=== PATIENT | male | born 1990 | race Caucasian/White ===

== ENCOUNTER 2018-04-19 15:50 | Emergency (ER) ==
--- NOTE | 2018-04-19 16:05 | NUR ---
NOT IN LOBBY
--- NOTE | 2018-04-19 16:14 | NUR ---
NOT IN LOBBY
--- NOTE | 2018-04-19 16:26 | NUR ---
NOT IN LOBBY
== END 2018-04-19 16:33 | disposition left against medical advice (07) ==
LOC: ER 15:51
DX: Z02.89 Encounter for other administrative examinations (principal); Z53.21 Procedure and treatment not carried out due to patient leaving prior to being seen by health care provider

== ENCOUNTER 2018-04-21 14:48 | Emergency (ER) | payer OTHER ==
[~2018-04-21] VITALS: Ht 188 cm; Wt 78.0 kg
[2018-04-21 15:01] VITALS: BP 188/105
[2018-04-21] MEDS ORDERED: HYDR25TA4 PO (15:20)
== END 2018-04-21 15:27 | disposition home or self-care (01) ==
LOC: ER 14:49
DX: I10 Essential (primary) hypertension (principal); R19.7 Diarrhea, unspecified; F17.200 Nicotine dependence, unspecified, uncomplicated; F15.10 Other stimulant abuse, uncomplicated; Z79.899 Other long term (current) drug therapy
CPT/HCPCS: 99283

== ENCOUNTER 2018-06-05 14:37 | Emergency (ER) | payer SELFPAY ==
[~2018-06-05] VITALS: Ht 188 cm; Wt 79.1 kg
[~2018-06-05 14:37] MED LIST: HYDR25TA4 PO
[2018-06-05 14:47] VITALS: BP 151/96
--- NOTE | 2018-06-05 15:02 | NUR ---
PT RESTING QUIETLY ON WHEELCHAIR, WAITING TO BE EVALUATED BY PROVIDER
[2018-06-05] MEDS ORDERED: ketorolac tromethamine 15mg/ml inj. IM ONE (15:15)
[2018-06-05] MEDS ORDERED: IBUP-1984 PO (15:41)
--- NOTE | 2018-06-05 16:08 | NUR ---
KNEE IMMOBILIZER ON UPON DC.
== END 2018-06-05 16:07 | disposition home or self-care (01) ==
LOC: ER 14:38
DX: S83.8X2A Sprain of other specified parts of left knee, initial encounter (principal); I10 Essential (primary) hypertension; F15.90 Other stimulant use, unspecified, uncomplicated; Z79.899 Other long term (current) drug therapy; W16.812A Jumping or diving into other water striking water surface causing other injury, initial encounter; Y93.89 Activity, other specified; Y92.89 Other specified places as the place of occurrence of the external cause; Y99.8 Other external cause status
CPT/HCPCS: 29505; 73560; 96372; 99284; J1885

== ENCOUNTER 2018-08-23 22:52 | Emergency (ER) | payer MEDICAID ==
[~2018-08-23] VITALS: Ht 188 cm; Wt 72.2 kg
[2018-08-23] MEDS ORDERED: ibuprofen 200mg tablet PO ONE (23:20)
[2018-08-23] MEDS ORDERED: PENI500T2 PO (23:22)
[2018-08-23 23:31] VITALS: BP 157/97
== END 2018-08-23 23:34 | disposition home or self-care (01) ==
LOC: ER 22:52
DX: K06.9 Disorder of gingiva and edentulous alveolar ridge, unspecified (principal); F15.90 Other stimulant use, unspecified, uncomplicated
CPT/HCPCS: 99283

== ENCOUNTER 2018-09-09 17:28 | Emergency (ER) | payer MEDICAID ==
[~2018-09-09] VITALS: Ht 188 cm; Wt 85.0 kg
[~2018-09-09 17:28] MED LIST changes: +PENI500T2 PO
[2018-09-09 17:40] VITALS: BP 149/89
[2018-09-09] MEDS ORDERED: IBUP-1986 PO (18:24)
[2018-09-09] MEDS ORDERED: ketorolac trometh inj. 60 MG/2 ML VIAL IM ONE (18:25)
== END 2018-09-09 18:42 | disposition home or self-care (01) ==
LOC: ER 17:29
DX: M54.6 Pain in thoracic spine (principal); I10 Essential (primary) hypertension; F15.90 Other stimulant use, unspecified, uncomplicated; Z88.6 Allergy status to analgesic agent; Z79.2 Long term (current) use of antibiotics; Z79.899 Other long term (current) drug therapy; X50.1XXA Overexertion from prolonged static or awkward postures, initial encounter; Y93.9 Activity, unspecified; Y92.89 Other specified places as the place of occurrence of the external cause; Y99.8 Other external cause status
CPT/HCPCS: 96372; 99283; J1885

== ENCOUNTER 2020-06-19 10:17 | Emergency (ER) | payer MEDICAID ==
[~2020-06-19] VITALS: Ht 188 cm; Wt 74.9 kg
[~2020-06-19 10:17] MED LIST changes: +IBUP-1986 PO; -PENI500T2 PO
[2020-06-19 10:19] VITALS: BP 172/109
[2020-06-19] MEDS ORDERED: PENI500T2 PO (10:57)
[2020-06-19] MEDS ORDERED: IBUP-1984 PO (10:57)
== END 2020-06-19 11:30 | disposition home or self-care (01) ==
LOC: ER 10:18
DX: K08.89 Other specified disorders of teeth and supporting structures (principal); I10 Essential (primary) hypertension; F15.90 Other stimulant use, unspecified, uncomplicated; Z88.6 Allergy status to analgesic agent; Z88.8 Allergy status to other drugs, medicaments and biological substances; Z79.2 Long term (current) use of antibiotics; Z79.899 Other long term (current) drug therapy
CPT/HCPCS: 99283

== ENCOUNTER 2020-09-04 05:38 | Emergency (ER) | payer MEDICAID ==
[~2020-09-04] VITALS: Ht 188 cm; Wt 80.0 kg
[2020-09-04 05:42] VITALS: BP 181/99
[2020-09-04] MEDS ORDERED: acetaminophen 325mg tablet PO ONE (05:50)
[2020-09-04] MEDS ORDERED: ibuprofen tablet 400 MG TABLET PO ONE (05:50)
== END 2020-09-04 18:22 | disposition left against medical advice (07) ==
LOC: ER 05:39
DX: K08.89 Other specified disorders of teeth and supporting structures (principal); Z53.21 Procedure and treatment not carried out due to patient leaving prior to being seen by health care provider

== ENCOUNTER 2020-11-14 09:48 | Emergency (ER) | payer MEDICAID ==
[~2020-11-14] VITALS: Ht 188 cm; Wt 79.5 kg
[2020-11-14 09:59] VITALS: BP 163/107
--- NOTE | 2020-11-14 10:34 | NUR ---
Patient seen and assessed by provider.
== END 2020-11-14 10:35 | disposition home or self-care (01) ==
LOC: ER 09:48
DX: R50.9 Fever, unspecified (principal); R05.9 Cough, unspecified; M79.10 Myalgia, unspecified site; Z20.822 Contact with and (suspected) exposure to COVID-19; I10 Essential (primary) hypertension; Z88.6 Allergy status to analgesic agent; Z88.8 Allergy status to other drugs, medicaments and biological substances
CPT/HCPCS: 36415; 99283; U0003; U0005